=== PATIENT | female | born 1975 | race African-American/Black ===

== ENCOUNTER 2017-07-23 16:06 | Inpatient (IN) ==
[2017-07-23] MEDS ORDERED: guaiFENesin/DM ER 600-30 MG TABLET PO PRN (18:17)
[2017-07-23] MEDS ORDERED: ACETAMINOPHEN 325 MG TABLET PO PRN ×2 (18:17)
[2017-07-23] MEDS ORDERED: DOCUSATE SODIUM 100 MG CAPSULE PO PRN (18:17)
[2017-07-23] MEDS ORDERED: oxyCODONE/ACETAMINOPHEN 5-325 MG TABLET PO PRN ×2 (18:17)
[2017-07-23] MEDS ORDERED: ENOXAPARIN 30 MG/0.3 ML SYRINGE SUBCUT SCH (18:30)
[2017-07-23] MEDS ORDERED: fentaNYL 50 MCG/HR PATCH TRANSDERM SCH (18:30)
[2017-07-23] MEDS: SODIUM CHLORIDE 0.9% 1,000 ML IV SCH (19:15)
[2017-07-23] MEDS: ONDANSETRON 4 MG/2 ML VIAL IV PRN (19:17)
[2017-07-23] MEDS: MEPERIDINE 25 MG/1 ML VIAL IV PRN ×2 (19:17→21:17)
[2017-07-23] MEDS: metroNIDAZOLE INJ 500 MG in PREMIX 1 EACH IV SCH (19:21)
[2017-07-23 20:03] LABS: Basophils % 0.7 % (0.0-0.8); Eosinophils # 0.2 10*3/uL (0.0-0.87); Eosinophils % 2.5 % (0.00-10.9); Hemoglobin 12.1 GM/DL (12.0-16.0); Immature Granulocytes % 0.3 %; Immature Granulocytes Absolute 0.02 #; Lymphocytes # 1.9 10*3/uL (1.4-4.0); Lymphocytes % 32.1 % (21.3-54.2); Mean Corpuscular HGB Conc 32.7 GM/DL (32-36); Mean Corpuscular Hemoglobin 28 PG (27-34); Mean Corpuscular Volume 84.3 FL (87-102); Mean Platelet Volume 13.3 FL (9.6-12.0); Monocytes # 0.3 10*3/uL (0.11-0.8); Monocytes % 5.2 % (1.7-12.7); Neutrophils # 3.5 10*3/uL (1.4-7.4); Neutrophils % 59.2 % (38.7-73.9); Platelet Count 188 T/CUMM (130-400); Red Blood Count 4.39 MC/CUMM (3.8-5.5); Red Cell Distribution Width 13.6 % (9.3-17.3)
[2017-07-23 20:34] LABS: Alanine Aminotransferase 14 U/L (13-56); Albumin 3.2 G/DL (3.4-5.0); Alkaline Phosphatase 106 U/L (45-117); Aspartate Amino Transferase 9 U/L (0-37); Bilirubin,Total < 0.39 MG/DL (0.2-1.0); Blood Urea Nitrogen 16 MG/DL (7-18); Calcium 8.2 MG/DL (8.5-10.1); Glucose 104 MG/DL (74-106); Osmolality,Calculated 275.7 MOS/KG (273-304); Sodium 138 MMOL/L (136-145); Total Protein 6.9 G/DL (6.4-8.3)
[2017-07-23] MEDS: LEVOFLOXACIN INJ 500 MG in PREMIX 1 EACH IV SCH (21:16)
[2017-07-23] MEDS: ZALEPLON 5 MG CAPSULE PO SCH (21:17)
[2017-07-23] MEDS: PREGABALIN 50 MG CAPSULE PO SCH (21:17)
[2017-07-23] MEDS: FERROUS SULFATE 325 MG TABLET PO SCH (21:17)
[2017-07-23] MEDS: GABAPENTIN 600 MG TABLET PO SCH (21:17)
[2017-07-23] MEDS: PROMETHAZINE 25 MG TABLET PO PRN (21:24)
[2017-07-23] MEDS: MEPERIDINE 50 MG/1 ML VIAL IV PRN (21:24)
[2017-07-24] MEDS: MEPERIDINE 50 MG/1 ML VIAL IV PRN ×6 (01:52→21:27)
[2017-07-24] MEDS: SODIUM CHLORIDE 0.9% 1,000 ML IV SCH ×5 (04:35→18:43)
[2017-07-24] MEDS: metroNIDAZOLE INJ 500 MG in PREMIX 1 EACH IV SCH ×2 (05:33→17:34)
[2017-07-24] MEDS: ONDANSETRON 4 MG/2 ML VIAL IV PRN ×3 (05:38→17:30)
[2017-07-24 07:01] LABS: Basophils % 0.6 % (0.0-0.8); Eosinophils # 0.2 10*3/uL (0.0-0.87); Eosinophils % 2.3 % (0.00-10.9); Hematocrit 33.7 VOL% (35.7-47.0); Hemoglobin 11.1 GM/DL (12.0-16.0); Immature Granulocytes % 0.3 %; Immature Granulocytes Absolute 0.02 #; Lymphocytes # 2.2 10*3/uL (1.4-4.0); Lymphocytes % 32.6 % (21.3-54.2); Mean Corpuscular HGB Conc 32.9 GM/DL (32-36); Mean Corpuscular Hemoglobin 28 PG (27-34); Mean Corpuscular Volume 84.7 FL (87-102); Mean Platelet Volume 13.1 FL (9.6-12.0); Monocytes # 0.5 10*3/uL (0.11-0.8); Monocytes % 7.2 % (1.7-12.7); Neutrophils # 3.9 10*3/uL (1.4-7.4); Platelet Count 171 T/CUMM (130-400); Red Blood Count 3.98 MC/CUMM (3.8-5.5); Red Cell Distribution Width 13.7 % (9.3-17.3); White Blood Count 6.9 T/CUMM (4-12)
[2017-07-24 07:41] LABS: Calcium 7.8 MG/DL (8.5-10.1); Magnesium 2.1 MG/DL (1.8-2.4); Osmolality,Calculated 277.7 MOS/KG (273-304); Potassium 3.9 MMOL/L (3.5-5.1)
[2017-07-24 07:48] LABS: Troponin I Only < 0.015 NG/ML (0.00-0.045)
[2017-07-24] MEDS: FERROUS SULFATE 325 MG TABLET PO SCH ×2 (08:27→21:26)
[2017-07-24] MEDS: LISINOPRIL 20 MG TABLET PO SCH (08:27)
[2017-07-24] MEDS: diphenhydrAMINE CAP 25 MG CAPSULE PO PRN ×2 (08:27→17:30)
[2017-07-24] MEDS: glipiZIDE 5 MG TABLET PO SCH (08:28)
[2017-07-24] MEDS: PROMETHAZINE 25 MG TABLET PO PRN ×3 (08:28→21:26)
[2017-07-24] MEDS: SERTRALINE 25 MG TABLET PO SCH (08:28)
[2017-07-24] MEDS: PANTOPRAZOLE 40 MG TABLET PO SCH (08:28)
[2017-07-24] MEDS: PREGABALIN 50 MG CAPSULE PO SCH ×3 (08:28→21:26)
[2017-07-24] MEDS: GABAPENTIN 600 MG TABLET PO SCH ×2 (08:28→21:27)
[2017-07-24 09:03] LABS: PT Patient Result 10.7 SECS
[2017-07-24] MEDS: oxyCODONE/ACETAMINOPHEN 5-325 MG TABLET PO PRN (14:26)
[2017-07-24] MEDS: WARFARIN 1 MG TABLET PO SCH (17:30)
[2017-07-24] MEDS: ZALEPLON 5 MG CAPSULE PO SCH (21:26)
[2017-07-24] MEDS: ENOXAPARIN 40 MG/0.4 ML SYRINGE SUBCUT SCH (21:27)
[2017-07-24] MEDS: INSULIN REGULAR 100 UNIT/ML SUBCUT SCH (21:31)
[2017-07-25] MEDS: ONDANSETRON 4 MG/2 ML VIAL IV PRN ×6 (00:15→22:04)
[2017-07-25] MEDS: diphenhydrAMINE CAP 25 MG CAPSULE PO PRN ×4 (00:15→18:35)
[2017-07-25] MEDS: SODIUM CHLORIDE 0.9% 1,000 ML IV SCH ×4 (00:15→18:44)
[2017-07-25] MEDS: MEPERIDINE 50 MG/1 ML VIAL IV PRN ×7 (00:18→22:03)
[2017-07-25] MEDS: oxyCODONE/ACETAMINOPHEN 5-325 MG TABLET PO PRN (03:08)
[2017-07-25] MEDS: metroNIDAZOLE INJ 500 MG in PREMIX 1 EACH IV SCH ×2 (06:03→18:43)
[2017-07-25 07:05] LABS: Basophils % 0.8 % (0.0-0.8); Eosinophils # 0.2 10*3/uL (0.0-0.87); Eosinophils % 3.8 % (0.00-10.9); Hematocrit 33.7 VOL% (35.7-47.0); Immature Granulocytes % 0.2 %; Immature Granulocytes Absolute 0.01 #; Lymphocytes # 2.2 10*3/uL (1.4-4.0); Lymphocytes % 41.3 % (21.3-54.2); Mean Corpuscular HGB Conc 32.6 GM/DL (32-36); Mean Corpuscular Hemoglobin 28 PG (27-34); Mean Corpuscular Volume 86.2 FL (87-102); Mean Platelet Volume 12.8 FL (9.6-12.0); Monocytes # 0.4 10*3/uL (0.11-0.8); Monocytes % 6.7 % (1.7-12.7); Neutrophils # 2.5 10*3/uL (1.4-7.4); Neutrophils % 47.2 % (38.7-73.9); Platelet Count 177 T/CUMM (130-400); Red Blood Count 3.91 MC/CUMM (3.8-5.5); Red Cell Distribution Width 13.8 % (9.3-17.3); White Blood Count 5.2 T/CUMM (4-12)
[2017-07-25 07:38] LABS: Calcium 7.5 MG/DL (8.5-10.1); Osmolality,Calculated 276.7 MOS/KG (273-304); Potassium 4.1 MMOL/L (3.5-5.1)
[2017-07-25] MEDS: PROMETHAZINE 25 MG TABLET PO PRN (08:58)
[2017-07-25] MEDS: FERROUS SULFATE 325 MG TABLET PO SCH ×2 (08:58→21:53)
[2017-07-25] MEDS: PREGABALIN 50 MG CAPSULE PO SCH ×3 (08:58→21:53)
[2017-07-25] MEDS: PANTOPRAZOLE 40 MG TABLET PO SCH (08:58)
[2017-07-25] MEDS: LISINOPRIL 20 MG TABLET PO SCH (08:58)
[2017-07-25] MEDS: glipiZIDE 5 MG TABLET PO SCH (08:58)
[2017-07-25] MEDS: GABAPENTIN 600 MG TABLET PO SCH ×2 (08:58→21:53)
[2017-07-25] MEDS: SERTRALINE 25 MG TABLET PO SCH (08:58)
[2017-07-25] MEDS: INSULIN REGULAR 100 UNIT/ML SUBCUT SCH ×4 (08:59→21:54)
[2017-07-25] MEDS ORDERED: HYDROmorphone 2 MG/1 ML VIAL IV ONE (14:48)
[2017-07-25 16:58] LABS: PT Patient Result 10.1 SECS
[2017-07-25] MEDS: WARFARIN 1 MG TABLET PO SCH (18:33)
[2017-07-25] MEDS: ZALEPLON 5 MG CAPSULE PO SCH (21:53)
[2017-07-25] MEDS: LEVOFLOXACIN INJ 500 MG in PREMIX 1 EACH IV SCH (21:54)
[2017-07-25] MEDS: ENOXAPARIN 40 MG/0.4 ML SYRINGE SUBCUT SCH (21:54)
[2017-07-26] MEDS: MEPERIDINE 50 MG/1 ML VIAL IV PRN ×5 (02:27→23:29)
[2017-07-26] MEDS: SODIUM CHLORIDE 0.9% 1,000 ML IV SCH ×6 (02:45→20:57)
[2017-07-26] MEDS: oxyCODONE/ACETAMINOPHEN 5-325 MG TABLET PO PRN ×3 (04:03→17:16)
[2017-07-26] MEDS: ONDANSETRON 4 MG/2 ML VIAL IV PRN ×4 (05:51→23:29)
[2017-07-26] MEDS: metroNIDAZOLE INJ 500 MG in PREMIX 1 EACH IV SCH ×2 (05:53→17:30)
[2017-07-26 07:23] LABS: Basophils % 0.6 % (0.0-0.8); Eosinophils # 0.2 10*3/uL (0.0-0.87); Eosinophils % 3.1 % (0.00-10.9); Hematocrit 31.6 VOL% (35.7-47.0); Hemoglobin 10.1 GM/DL (12.0-16.0); Immature Granulocytes % 0.2 %; Immature Granulocytes Absolute 0.01 #; Lymphocytes % 37.4 % (21.3-54.2); Mean Corpuscular Hemoglobin 28 PG (27-34); Mean Corpuscular Volume 86.3 FL (87-102); Monocytes # 0.3 10*3/uL (0.11-0.8); Monocytes % 6.2 % (1.7-12.7); Neutrophils # 2.9 10*3/uL (1.4-7.4); Neutrophils % 52.5 % (38.7-73.9); Platelet Count 163 T/CUMM (130-400); Red Blood Count 3.66 MC/CUMM (3.8-5.5); Red Cell Distribution Width 13.8 % (9.3-17.3); White Blood Count 5.5 T/CUMM (4-12)
[2017-07-26 08:07] LABS: PT Patient Result 10.3 SECS
[2017-07-26 08:11] LABS: Calcium 7.3 MG/DL (8.5-10.1); Magnesium 1.9 MG/DL (1.8-2.4); Osmolality,Calculated 280.4 MOS/KG (273-304); Potassium 4.3 MMOL/L (3.5-5.1)
[2017-07-26] MEDS: INSULIN REGULAR 100 UNIT/ML SUBCUT SCH ×4 (08:18→21:06)
[2017-07-26] MEDS: GABAPENTIN 600 MG TABLET PO SCH ×2 (08:19→21:00)
[2017-07-26] MEDS: MEPERIDINE 25 MG/1 ML VIAL IV PRN (08:19)
[2017-07-26] MEDS: FERROUS SULFATE 325 MG TABLET PO SCH ×2 (08:19→21:00)
[2017-07-26] MEDS: PREGABALIN 50 MG CAPSULE PO SCH ×3 (08:19→21:00)
[2017-07-26] MEDS: LISINOPRIL 20 MG TABLET PO SCH (08:19)
[2017-07-26] MEDS: PROMETHAZINE 25 MG TABLET PO PRN ×2 (08:19→14:26)
[2017-07-26] MEDS: PANTOPRAZOLE 40 MG TABLET PO SCH (08:19)
[2017-07-26] MEDS: SERTRALINE 25 MG TABLET PO SCH (08:20)
[2017-07-26] MEDS: glipiZIDE 5 MG TABLET PO SCH (08:20)
[2017-07-26] MEDS: fentaNYL 25 MCG/HR PATCH TRANSDERM SCH (13:25)
[2017-07-26] MEDS: WARFARIN 1 MG TABLET PO SCH (17:16)
[2017-07-26] MEDS: ZALEPLON 5 MG CAPSULE PO SCH (20:59)
[2017-07-26] MEDS: ENOXAPARIN 40 MG/0.4 ML SYRINGE SUBCUT SCH (20:59)
[2017-07-27] MEDS: MEPERIDINE 50 MG/1 ML VIAL IV PRN ×5 (04:25→21:23)
[2017-07-27] MEDS: ONDANSETRON 4 MG/2 ML VIAL IV PRN ×5 (04:26→21:20)
[2017-07-27] MEDS: diphenhydrAMINE CAP 25 MG CAPSULE PO PRN ×3 (04:29→21:19)
[2017-07-27] MEDS: SODIUM CHLORIDE 0.9% 1,000 ML IV SCH ×2 (04:56→23:36)
[2017-07-27] MEDS: metroNIDAZOLE INJ 500 MG in PREMIX 1 EACH IV SCH ×2 (05:40→17:48)
[2017-07-27 07:29] LABS: Basophils % 0.5 % (0.0-0.8); Eosinophils # 0.2 10*3/uL (0.0-0.87); Eosinophils % 4.3 % (0.00-10.9); Hematocrit 31.4 VOL% (35.7-47.0); Lymphocytes % 36.5 % (21.3-54.2); Mean Corpuscular HGB Conc 31.8 GM/DL (32-36); Mean Corpuscular Hemoglobin 27 PG (27-34); Monocytes # 0.4 10*3/uL (0.11-0.8); Monocytes % 6.6 % (1.7-12.7); Neutrophils # 2.9 10*3/uL (1.4-7.4); Neutrophils % 52.1 % (38.7-73.9); Platelet Count 179 T/CUMM (130-400); Red Blood Count 3.65 MC/CUMM (3.8-5.5); Red Cell Distribution Width 13.9 % (9.3-17.3); White Blood Count 5.6 T/CUMM (4-12)
[2017-07-27 07:42] LABS: PT Patient Result 10.3 SECS
[2017-07-27 07:56] LABS: Calcium 7.7 MG/DL (8.5-10.1); Magnesium 1.7 MG/DL (1.8-2.4); Osmolality,Calculated 282.3 MOS/KG (273-304); Potassium 4.4 MMOL/L (3.5-5.1)
[2017-07-27] MEDS: FERROUS SULFATE 325 MG TABLET PO SCH ×2 (08:04→21:19)
[2017-07-27] MEDS: LISINOPRIL 20 MG TABLET PO SCH (08:04)
[2017-07-27] MEDS: glipiZIDE 5 MG TABLET PO SCH (08:04)
[2017-07-27] MEDS: INSULIN REGULAR 100 UNIT/ML SUBCUT SCH ×4 (08:05→21:20)
[2017-07-27] MEDS: PANTOPRAZOLE 40 MG TABLET PO SCH (08:05)
[2017-07-27] MEDS: SERTRALINE 25 MG TABLET PO SCH (08:05)
[2017-07-27] MEDS: PREGABALIN 50 MG CAPSULE PO SCH ×3 (08:05→21:19)
[2017-07-27] MEDS: GABAPENTIN 600 MG TABLET PO SCH ×2 (08:05→21:19)
[2017-07-27] MEDS ORDERED: MAGNESIUM SULF RIDER 2 GM in PREMIX 1 EACH IV ONE (08:56)
[2017-07-27] MEDS: oxyCODONE/ACETAMINOPHEN 5-325 MG TABLET PO PRN ×2 (10:00→17:48)
[2017-07-27] MEDS: WARFARIN 1 MG TABLET PO SCH (17:48)
[2017-07-27] MEDS: PROMETHAZINE 25 MG TABLET PO PRN (17:49)
[2017-07-27] MEDS: ENOXAPARIN 40 MG/0.4 ML SYRINGE SUBCUT SCH (21:19)
[2017-07-27] MEDS: ZALEPLON 5 MG CAPSULE PO SCH (21:19)
[2017-07-27] MEDS: LEVOFLOXACIN INJ 500 MG in PREMIX 1 EACH IV SCH (21:20)
[2017-07-28] MEDS: ONDANSETRON 4 MG/2 ML VIAL IV PRN ×5 (01:13→22:22)
[2017-07-28] MEDS: MEPERIDINE 50 MG/1 ML VIAL IV PRN ×5 (01:15→22:20)
[2017-07-28] MEDS: SODIUM CHLORIDE 0.9% 1,000 ML IV SCH ×4 (02:34→21:10)
[2017-07-28] MEDS: metroNIDAZOLE INJ 500 MG in PREMIX 1 EACH IV SCH ×2 (05:32→18:08)
[2017-07-28 06:16] LABS: Calcium 7.6 MG/DL (8.5-10.1); Osmolality,Calculated 283.4 MOS/KG (273-304); Potassium 4.2 MMOL/L (3.5-5.1)
[2017-07-28 06:19] LABS: PT Patient Result 10.3 SECS
[2017-07-28] MEDS: oxyCODONE/ACETAMINOPHEN 5-325 MG TABLET PO PRN (06:45)
[2017-07-28] MEDS: INSULIN REGULAR 100 UNIT/ML SUBCUT SCH ×4 (07:53→21:11)
[2017-07-28] MEDS: SERTRALINE 25 MG TABLET PO SCH (08:41)
[2017-07-28] MEDS: PREGABALIN 50 MG CAPSULE PO SCH ×3 (08:41→21:11)
[2017-07-28] MEDS: PANTOPRAZOLE 40 MG TABLET PO SCH (08:42)
[2017-07-28] MEDS: FERROUS SULFATE 325 MG TABLET PO SCH ×2 (08:42→21:11)
[2017-07-28] MEDS: glipiZIDE 5 MG TABLET PO SCH (08:42)
[2017-07-28] MEDS: GABAPENTIN 600 MG TABLET PO SCH ×2 (08:42→21:11)
[2017-07-28] MEDS: LISINOPRIL 20 MG TABLET PO SCH (08:43)
[2017-07-28] MEDS ORDERED: HYDROmorphone 2 MG/1 ML VIAL IV ONE (12:00)
[2017-07-28] MEDS: diphenhydrAMINE CAP 25 MG CAPSULE PO PRN ×2 (13:31→22:20)
[2017-07-28] MEDS: WARFARIN 1 MG TABLET PO SCH (18:09)
[2017-07-28] MEDS: ZALEPLON 5 MG CAPSULE PO SCH (21:11)
[2017-07-28] MEDS: ENOXAPARIN 40 MG/0.4 ML SYRINGE SUBCUT SCH (21:11)
[2017-07-29] MEDS: MEPERIDINE 50 MG/1 ML VIAL IV PRN ×3 (02:18→10:51)
[2017-07-29] MEDS: ONDANSETRON 4 MG/2 ML VIAL IV PRN ×4 (02:19→23:27)
[2017-07-29 06:30] LABS: PT Patient Result 10.2 SECS
[2017-07-29] MEDS: metroNIDAZOLE INJ 500 MG in PREMIX 1 EACH IV SCH ×2 (06:39→17:51)
[2017-07-29] MEDS: SODIUM CHLORIDE 0.9% 1,000 ML IV SCH ×3 (06:39→21:08)
[2017-07-29 06:51] LABS: Magnesium 1.8 MG/DL (1.8-2.4); Osmolality,Calculated 281.4 MOS/KG (273-304); Potassium 4.3 MMOL/L (3.5-5.1)
[2017-07-29] MEDS: INSULIN REGULAR 100 UNIT/ML SUBCUT SCH ×4 (07:49→20:49)
[2017-07-29] MEDS: LISINOPRIL 20 MG TABLET PO SCH (09:08)
[2017-07-29] MEDS: fentaNYL 25 MCG/HR PATCH TRANSDERM SCH (09:08)
[2017-07-29] MEDS: PREGABALIN 50 MG CAPSULE PO SCH ×3 (09:09→21:07)
[2017-07-29] MEDS: GABAPENTIN 600 MG TABLET PO SCH ×2 (09:09→21:07)
[2017-07-29] MEDS: FERROUS SULFATE 325 MG TABLET PO SCH ×2 (09:09→21:07)
[2017-07-29] MEDS: SERTRALINE 25 MG TABLET PO SCH (09:09)
[2017-07-29] MEDS: PANTOPRAZOLE 40 MG TABLET PO SCH (09:09)
[2017-07-29] MEDS: glipiZIDE 5 MG TABLET PO SCH (09:09)
[2017-07-29] MEDS: oxyCODONE/ACETAMINOPHEN 5-325 MG TABLET PO PRN (12:20)
[2017-07-29] MEDS: MEPERIDINE 25 MG/1 ML VIAL IV PRN ×3 (14:49→23:31)
[2017-07-29] MEDS: PROMETHAZINE 25 MG TABLET PO PRN (14:52)
[2017-07-29] MEDS: WARFARIN 1 MG TABLET PO SCH (17:51)
[2017-07-29 18:33] LABS: Apearance,Urine CLEAR (Clear); Bilirubin,Urine Negative (Negative); Blood, Urine Small mg/dL (Negative); Glucose,Urine (UA) Negative (Negative); Ketones,Urine Negative (Negative); Mucus,Urine Occasional /LPF (Occasional); Nitrite,Urine Negative (Negative); Protein,Urine Negative; RBC,Urine 16 /HPF (0-4); Squamous Epithelial Cell,Urine Occasional /HPF (0-10); Urine Color Straw (Yellow); Urine Specific Gravity 1.006 (1.001-1.035); Urine Urobilinogen < 2.0 EU/DL (0.2-1.0); WBC,Urine 12 /HPF (0-6)
[2017-07-29] MEDS: ENOXAPARIN 40 MG/0.4 ML SYRINGE SUBCUT SCH (21:07)
[2017-07-29] MEDS: ZALEPLON 5 MG CAPSULE PO SCH (21:07)
[2017-07-29] MEDS: LEVOFLOXACIN INJ 500 MG in PREMIX 1 EACH IV SCH (21:07)
[2017-07-29] MEDS: diphenhydrAMINE CAP 25 MG CAPSULE PO PRN (23:27)
[2017-07-30] MEDS: SODIUM CHLORIDE 0.9% 1,000 ML IV SCH ×4 (02:45→20:58)
[2017-07-30] MEDS: ONDANSETRON 4 MG/2 ML VIAL IV PRN ×4 (04:33→21:04)
[2017-07-30] MEDS: MEPERIDINE 25 MG/1 ML VIAL IV PRN ×5 (04:35→21:04)
[2017-07-30 06:25] LABS: PT Patient Result 10.2 SECS
[2017-07-30] MEDS: metroNIDAZOLE INJ 500 MG in PREMIX 1 EACH IV SCH ×2 (06:38→17:30)
[2017-07-30] MEDS: LISINOPRIL 20 MG TABLET PO SCH (08:15)
[2017-07-30] MEDS: INSULIN REGULAR 100 UNIT/ML SUBCUT SCH ×4 (08:15→20:58)
[2017-07-30] MEDS: PREGABALIN 50 MG CAPSULE PO SCH (08:16)
[2017-07-30] MEDS: SERTRALINE 25 MG TABLET PO SCH (08:16)
[2017-07-30] MEDS: PANTOPRAZOLE 40 MG TABLET PO SCH (08:16)
[2017-07-30] MEDS: glipiZIDE 5 MG TABLET PO SCH (08:16)
[2017-07-30] MEDS: FERROUS SULFATE 325 MG TABLET PO SCH ×2 (08:16→21:54)
[2017-07-30] MEDS: GABAPENTIN 600 MG TABLET PO SCH ×3 (08:16→20:59)
[2017-07-30] MEDS: PROMETHAZINE 25 MG TABLET PO PRN (11:54)
[2017-07-30] MEDS: WARFARIN 1 MG TABLET PO SCH (17:24)
[2017-07-30] MEDS: ZALEPLON 5 MG CAPSULE PO SCH (20:59)
[2017-07-30] MEDS: ENOXAPARIN 40 MG/0.4 ML SYRINGE SUBCUT SCH (20:59)
[2017-07-31] MEDS: ONDANSETRON 4 MG/2 ML VIAL IV PRN ×5 (01:13→20:57)
[2017-07-31] MEDS: MEPERIDINE 25 MG/1 ML VIAL IV PRN ×4 (01:13→20:57)
[2017-07-31] MEDS: SODIUM CHLORIDE 0.9% 1,000 ML IV SCH ×3 (04:55→22:55)
[2017-07-31] MEDS: metroNIDAZOLE INJ 500 MG in PREMIX 1 EACH IV SCH ×2 (05:40→17:39)
[2017-07-31] MEDS: INSULIN REGULAR 100 UNIT/ML SUBCUT SCH ×4 (07:28→20:58)
[2017-07-31] MEDS: LISINOPRIL 20 MG TABLET PO SCH (08:50)
[2017-07-31] MEDS: FERROUS SULFATE 325 MG TABLET PO SCH ×2 (08:50→20:59)
[2017-07-31] MEDS: glipiZIDE 5 MG TABLET PO SCH (08:51)
[2017-07-31] MEDS: PANTOPRAZOLE 40 MG TABLET PO SCH (08:51)
[2017-07-31] MEDS: GABAPENTIN 600 MG TABLET PO SCH ×3 (08:51→20:59)
[2017-07-31] MEDS: SERTRALINE 25 MG TABLET PO SCH (08:51)
[2017-07-31] MEDS ORDERED: HYDROmorphone 2 MG/1 ML VIAL IV ONE (09:52)
[2017-07-31] MEDS: WARFARIN 1 MG TABLET PO SCH (17:39)
[2017-07-31] MEDS: ENOXAPARIN 40 MG/0.4 ML SYRINGE SUBCUT SCH (20:58)
[2017-07-31] MEDS: ZALEPLON 5 MG CAPSULE PO SCH (20:59)
[2017-07-31] MEDS: LEVOFLOXACIN INJ 500 MG in PREMIX 1 EACH IV SCH (22:52)
[2017-08-01] MEDS: MEPERIDINE 25 MG/1 ML VIAL IV PRN (05:02)
[2017-08-01] MEDS: ONDANSETRON 4 MG/2 ML VIAL IV PRN (05:03)
[2017-08-01] MEDS: metroNIDAZOLE INJ 500 MG in PREMIX 1 EACH IV SCH (06:04)
[2017-08-01] MEDS: INSULIN REGULAR 100 UNIT/ML SUBCUT SCH ×2 (08:44→12:05)
[2017-08-01] MEDS: oxyCODONE/ACETAMINOPHEN 5-325 MG TABLET PO PRN (08:45)
[2017-08-01] MEDS: GABAPENTIN 600 MG TABLET PO SCH (08:46)
[2017-08-01] MEDS: SERTRALINE 25 MG TABLET PO SCH (08:46)
[2017-08-01] MEDS: LISINOPRIL 20 MG TABLET PO SCH (08:46)
[2017-08-01] MEDS: FERROUS SULFATE 325 MG TABLET PO SCH (08:46)
[2017-08-01] MEDS: glipiZIDE 5 MG TABLET PO SCH (08:46)
[2017-08-01] MEDS: PANTOPRAZOLE 40 MG TABLET PO SCH (08:46)
[2017-08-01] MEDS: fentaNYL 25 MCG/HR PATCH TRANSDERM SCH (08:47)
[2017-08-01 09:15] VITALS: BP 150/83
[2017-08-01] MEDS: SODIUM CHLORIDE 0.9% 1,000 ML IV SCH (12:05)
== END 2017-08-01 12:03 | disposition home or self-care (01) | DRG 699 ==
LOC: N.5E 16:32 → SUATTDRO 16:32
PROVIDERS: ATTEND Internal Medicine

== ENCOUNTER 2018-04-30 07:28 | Inpatient (IN) ==
[2018-04-30] MEDS ORDERED: ONDANSETRON 4 MG/2 ML VIAL IV STA (07:45)
[2018-04-30] MEDS ORDERED: METOPROLOL TARTRATE 5 MG/5 ML VIAL IV STA (07:45)
[2018-04-30] MEDS ORDERED: fentaNYL 100 MCG/2 ML VIAL IV STA (07:48)
[2018-04-30 08:35] LABS: Basophils % 0.2 % (0.0-0.8); Eosinophils # 0.1 10*3/uL (0.0-0.87); Eosinophils % 1.1 % (0.00-10.9); Hematocrit 33.7 VOL% (35.7-47.0); Hemoglobin 11.1 GM/DL (12.0-16.0); Immature Granulocytes % 0.2 %; Immature Granulocytes Absolute 0.02 #; Lymphocytes # 1.3 10*3/uL (1.4-4.0); Lymphocytes % 15.5 % (21.3-54.2); Mean Corpuscular HGB Conc 32.9 GM/DL (32-36); Mean Corpuscular Hemoglobin 28 PG (27-34); Mean Platelet Volume 12.3 FL (9.6-12.0); Monocytes # 0.5 10*3/uL (0.11-0.8); Monocytes % 5.4 % (1.7-12.7); Neutrophils # 6.5 10*3/uL (1.4-7.4); Neutrophils % 77.6 % (38.7-73.9); Platelet Count 214 T/CUMM (130-400); Red Blood Count 4.01 MC/CUMM (3.8-5.5); Red Cell Distribution Width 13.9 % (9.3-17.3); White Blood Count 8.4 T/CUMM (4-12)
[2018-04-30 08:56] LABS: Alanine Aminotransferase 11 U/L (13-56); Albumin 2.9 G/DL (3.4-5.0); Alkaline Phosphatase 104 U/L (45-117); Aspartate Amino Transferase 6 U/L (0-37); Bilirubin,Total < 0.39 MG/DL (0.2-1.0); Blood Urea Nitrogen 16 MG/DL (7-18); Glucose 161 MG/DL (74-106); Osmolality,Calculated 278.7 MOS/KG (273-304); Potassium 3.8 MMOL/L (3.5-5.1); Sodium 138 MMOL/L (136-145); Total Protein 7.5 G/DL (6.4-8.3)
[2018-04-30] MEDS ORDERED: GLUCAGON 1 MG VIAL IM PRN (09:11)
[2018-04-30] MEDS ORDERED: DEXTROSE 50% 25 GM/50 ML VIAL IV PRN (09:11)
[2018-04-30] MEDS ORDERED: oxyCODONE/ACETAMINOPHEN 5-325 MG TABLET PO PRN (09:15)
[2018-04-30] MEDS: SODIUM CHLORIDE 0.9% 1,000 ML IV SCH ×2 (09:35→17:39)
[2018-04-30] MEDS: INSULIN REGULAR 100 UNIT/ML SUBCUT SCH ×3 (10:08→20:47)
[2018-04-30] MEDS: PROMETHAZINE 25 MG TABLET PO PRN ×2 (10:30→20:45)
[2018-04-30] MEDS: ONDANSETRON ODT 4 MG TABLET PO PRN (13:57)
[2018-04-30] MEDS: PREGABALIN 50 MG CAPSULE PO SCH ×2 (15:49→20:45)
[2018-04-30] MEDS: oxyCODONE/ACETAMINOPHEN 5-325 MG TABLET PO PRN ×2 (15:50→21:56)
[2018-04-30] MEDS: FERROUS SULFATE 325 MG TABLET PO SCH (20:45)
[2018-04-30] MEDS: ZALEPLON 5 MG CAPSULE PO SCH (20:45)
[2018-05-01] MEDS ORDERED: MEPERIDINE 25 MG/1 ML VIAL IV ONE (01:23)
[2018-05-01] MEDS: SODIUM CHLORIDE 0.9% 1,000 ML IV SCH ×3 (01:44→16:40)
[2018-05-01 05:53] LABS: Basophils % 0.3 % (0.0-0.8); Eosinophils # 0.1 10*3/uL (0.0-0.87); Eosinophils % 1.9 % (0.00-10.9); Hematocrit 27.4 VOL% (35.7-47.0); Immature Granulocytes % 0.2 %; Immature Granulocytes Absolute 0.01 #; Lymphocytes # 1.9 10*3/uL (1.4-4.0); Mean Corpuscular HGB Conc 32.8 GM/DL (32-36); Mean Corpuscular Hemoglobin 28 PG (27-34); Mean Corpuscular Volume 83.8 FL (87-102); Mean Platelet Volume 12.7 FL (9.6-12.0); Monocytes # 0.5 10*3/uL (0.11-0.8); Neutrophils # 3.9 10*3/uL (1.4-7.4); Neutrophils % 60.6 % (38.7-73.9); Red Blood Count 3.27 MC/CUMM (3.8-5.5); Red Cell Distribution Width 13.9 % (9.3-17.3); White Blood Count 6.4 T/CUMM (4-12)
[2018-05-01 05:56] LABS: Platelet Count 171 T/CUMM (130-400)
[2018-05-01 06:15] LABS: Calcium 7.1 MG/DL (8.5-10.1); Osmolality,Calculated 281.5 MOS/KG (273-304)
[2018-05-01] MEDS: PREGABALIN 50 MG CAPSULE PO SCH ×3 (08:43→20:54)
[2018-05-01] MEDS: SERTRALINE 25 MG TABLET PO SCH (08:43)
[2018-05-01] MEDS: PANTOPRAZOLE 40 MG TABLET PO SCH (08:43)
[2018-05-01] MEDS: FERROUS SULFATE 325 MG TABLET PO SCH ×2 (08:43→20:54)
[2018-05-01] MEDS: LISINOPRIL 20 MG TABLET PO SCH (08:43)
[2018-05-01] MEDS: glipiZIDE 5 MG TABLET PO SCH (08:43)
[2018-05-01] MEDS: INSULIN REGULAR 100 UNIT/ML SUBCUT SCH ×4 (08:44→20:55)
[2018-05-01] MEDS ORDERED: NON-FORMULARY MEDICATION (Esomeprazole Magnesium [Nexium] 40 MG) PO SCH (09:00)
[2018-05-01] MEDS: MORPHINE IR 15 MG TABLET PO PRN ×2 (09:22→13:03)
[2018-05-01 14:04] LABS: Basophils % 0.2 % (0.0-0.8); Eosinophils # 0.1 10*3/uL (0.0-0.87); Eosinophils % 1.7 % (0.00-10.9); Hematocrit 28.1 VOL% (35.7-47.0); Hemoglobin 9.2 GM/DL (12.0-16.0); Immature Granulocytes % 0.1 %; Immature Granulocytes Absolute 0.01 #; Lymphocytes # 2.3 10*3/uL (1.4-4.0); Lymphocytes % 28.4 % (21.3-54.2); Mean Corpuscular HGB Conc 32.7 GM/DL (32-36); Mean Corpuscular Hemoglobin 27 PG (27-34); Mean Corpuscular Volume 83.1 FL (87-102); Mean Platelet Volume 12.8 FL (9.6-12.0); Monocytes # 0.6 10*3/uL (0.11-0.8); Monocytes % 7.6 % (1.7-12.7); Neutrophils # 5.1 10*3/uL (1.4-7.4); Platelet Count 173 T/CUMM (130-400); Red Blood Count 3.38 MC/CUMM (3.8-5.5); White Blood Count 8.2 T/CUMM (4-12)
[2018-05-01] MEDS: MORPHINE 4 MG/1 ML VIAL IV PRN ×2 (17:34→21:09)
[2018-05-01] MEDS: ONDANSETRON ODT 4 MG TABLET PO PRN (17:34)
[2018-05-01] MEDS: ZALEPLON 5 MG CAPSULE PO SCH (20:54)
[2018-05-02] MEDS: ONDANSETRON ODT 4 MG TABLET PO PRN ×2 (00:03→13:19)
[2018-05-02] MEDS: MORPHINE 4 MG/1 ML VIAL IV PRN ×2 (00:03→03:00)
[2018-05-02] MEDS: SODIUM CHLORIDE 0.9% 1,000 ML IV SCH ×3 (00:06→20:33)
[2018-05-02] MEDS ORDERED: PROMETHAZINE INJ 25 MG in SODIUM CHLORIDE 0.9% 50 ML IV ONE (02:10)
[2018-05-02 05:41] LABS: Basophils % 0.2 % (0.0-0.8); Eosinophils % 0.1 % (0.00-10.9); Hemoglobin 9.1 GM/DL (12.0-16.0); Immature Granulocytes % 0.4 %; Immature Granulocytes Absolute 0.05 #; Lymphocytes # 0.6 10*3/uL (1.4-4.0); Lymphocytes % 4.8 % (21.3-54.2); Mean Corpuscular HGB Conc 32.5 GM/DL (32-36); Mean Corpuscular Hemoglobin 28 PG (27-34); Mean Corpuscular Volume 84.8 FL (87-102); Mean Platelet Volume 12.5 FL (9.6-12.0); Monocytes # 0.5 10*3/uL (0.11-0.8); Neutrophils # 10.5 10*3/uL (1.4-7.4); Neutrophils % 90.5 % (38.7-73.9); Platelet Count 186 T/CUMM (130-400); Red Cell Distribution Width 13.8 % (9.3-17.3); White Blood Count 11.6 T/CUMM (4-12)
[2018-05-02 05:53] LABS: Calcium 7.7 MG/DL (8.5-10.1); Osmolality,Calculated 284.5 MOS/KG (273-304); Potassium 4.3 MMOL/L (3.5-5.1)
[2018-05-02 06:00] LABS: Hypochromasia 1+; Lymphocytes 5 % (20-55); Microcytosis 1+; Platelet Estimate Adequate; Segmented Neutrophils 90 % (50-85); Total Cells Counted 100
[2018-05-02] MEDS: FERROUS SULFATE 325 MG TABLET PO SCH ×2 (08:26→20:31)
[2018-05-02] MEDS: glipiZIDE 5 MG TABLET PO SCH (08:26)
[2018-05-02] MEDS: PREGABALIN 50 MG CAPSULE PO SCH ×3 (08:26→20:31)
[2018-05-02] MEDS: PANTOPRAZOLE 40 MG TABLET PO SCH (08:27)
[2018-05-02] MEDS: PROMETHAZINE 25 MG TABLET PO PRN ×2 (08:27→17:55)
[2018-05-02] MEDS: SERTRALINE 25 MG TABLET PO SCH (08:27)
[2018-05-02] MEDS: LISINOPRIL 20 MG TABLET PO SCH (08:27)
[2018-05-02] MEDS: INSULIN REGULAR 100 UNIT/ML SUBCUT SCH ×4 (08:49→20:56)
[2018-05-02] MEDS: HYDROmorphone 2 MG/1 ML VIAL IV PRN ×4 (08:50→22:41)
[2018-05-02] MEDS: ZALEPLON 5 MG CAPSULE PO SCH (20:31)
[2018-05-03] MEDS: HYDROmorphone 2 MG/1 ML VIAL IV PRN ×5 (02:36→21:42)
[2018-05-03] MEDS: PROMETHAZINE 25 MG TABLET PO PRN ×3 (02:56→21:42)
[2018-05-03] MEDS: SODIUM CHLORIDE 0.9% 1,000 ML IV SCH ×3 (04:31→20:41)
[2018-05-03] MEDS: INSULIN REGULAR 100 UNIT/ML SUBCUT SCH ×4 (08:16→21:45)
[2018-05-03] MEDS: FERROUS SULFATE 325 MG TABLET PO SCH ×2 (08:39→20:41)
[2018-05-03] MEDS: LISINOPRIL 20 MG TABLET PO SCH (08:39)
[2018-05-03] MEDS: glipiZIDE 5 MG TABLET PO SCH (08:39)
[2018-05-03] MEDS: PANTOPRAZOLE 40 MG TABLET PO SCH (08:40)
[2018-05-03] MEDS: PREGABALIN 50 MG CAPSULE PO SCH ×3 (08:40→20:41)
[2018-05-03] MEDS: SERTRALINE 25 MG TABLET PO SCH (08:40)
[2018-05-03] MEDS: fentaNYL 25 MCG/HR PATCH TRANSDERM SCH (09:14)
[2018-05-03 17:46] LABS: Apearance,Urine CLOUDY (Clear); Bilirubin,Urine Negative (Negative); Blood, Urine Moderate mg/dL (Negative); Glucose,Urine (UA) Negative (Negative); Ketones,Urine Negative (Negative); Nitrite,Urine Negative (Negative); Protein,Urine 100 MG/DL; RBC,Urine 3905 /HPF (0-4); Urine Color Red (Yellow); Urine Specific Gravity 1.005 (1.001-1.035); Urine Urobilinogen < 2.0 EU/DL (0.2-1.0); WBC,Urine 100 /HPF (0-6)
[2018-05-03] MEDS: ZALEPLON 5 MG CAPSULE PO SCH (20:41)
[2018-05-04] MEDS: HYDROmorphone 2 MG/1 ML VIAL IV PRN ×6 (01:28→21:58)
[2018-05-04] MEDS: SODIUM CHLORIDE 0.9% 1,000 ML IV SCH ×2 (04:50→20:52)
[2018-05-04 05:18] LABS: Basophils % 0.3 % (0.0-0.8); Eosinophils % 0.2 % (0.00-10.9); Hematocrit 23.2 VOL% (35.7-47.0); Hemoglobin 7.5 GM/DL (12.0-16.0); Immature Granulocytes % 0.4 %; Immature Granulocytes Absolute 0.04 #; Lymphocytes # 1.3 10*3/uL (1.4-4.0); Lymphocytes % 11.4 % (21.3-54.2); Mean Corpuscular HGB Conc 32.3 GM/DL (32-36); Mean Corpuscular Hemoglobin 28 PG (27-34); Mean Platelet Volume 12.3 FL (9.6-12.0); Monocytes # 0.8 10*3/uL (0.11-0.8); Monocytes % 7.5 % (1.7-12.7); Neutrophils # 8.8 10*3/uL (1.4-7.4); Neutrophils % 80.2 % (38.7-73.9); Platelet Count 211 T/CUMM (130-400); Red Blood Count 2.73 MC/CUMM (3.8-5.5); Red Cell Distribution Width 13.9 % (9.3-17.3)
[2018-05-04] MEDS: PROMETHAZINE 25 MG TABLET PO PRN ×2 (05:27→21:58)
[2018-05-04 05:54] LABS: Albumin 1.9 G/DL (3.4-5.0); Bilirubin,Total 0.5 MG/DL (0.2-1.0); Calcium 7.4 MG/DL (8.5-10.1); Osmolality,Calculated 285.1 MOS/KG (273-304); Potassium 3.7 MMOL/L (3.5-5.1); Total Protein 5.9 G/DL (6.4-8.3)
[2018-05-04] MEDS: INSULIN REGULAR 100 UNIT/ML SUBCUT SCH ×4 (07:52→20:55)
[2018-05-04] MEDS ORDERED: SODIUM CHLORIDE 0.9% 1,000 ML IV PRN (08:32)
[2018-05-04] MEDS ORDERED: ACETAMINOPHEN 325 MG TABLET PO PRN (08:32)
[2018-05-04] MEDS: glipiZIDE 5 MG TABLET PO SCH (09:12)
[2018-05-04] MEDS: LISINOPRIL 20 MG TABLET PO SCH (09:12)
[2018-05-04] MEDS: PANTOPRAZOLE 40 MG TABLET PO SCH (09:12)
[2018-05-04] MEDS: FERROUS SULFATE 325 MG TABLET PO SCH ×2 (09:12→20:53)
[2018-05-04] MEDS: SERTRALINE 25 MG TABLET PO SCH (09:12)
[2018-05-04] MEDS: PREGABALIN 50 MG CAPSULE PO SCH ×3 (09:12→20:53)
[2018-05-04] MEDS: ONDANSETRON ODT 4 MG TABLET PO PRN (17:15)
[2018-05-04] MEDS: ZALEPLON 5 MG CAPSULE PO SCH (20:53)
[2018-05-05] MEDS: ONDANSETRON ODT 4 MG TABLET PO PRN ×2 (02:38→10:02)
[2018-05-05] MEDS: HYDROmorphone 2 MG/1 ML VIAL IV PRN ×5 (02:38→21:28)
[2018-05-05 05:26] LABS: Basophils % 0.3 % (0.0-0.8); Eosinophils # 0.1 10*3/uL (0.0-0.87); Eosinophils % 1.1 % (0.00-10.9); Hematocrit 26.8 VOL% (35.7-47.0); Hemoglobin 8.7 GM/DL (12.0-16.0); Immature Granulocytes % 0.5 %; Immature Granulocytes Absolute 0.05 #; Lymphocytes # 1.7 10*3/uL (1.4-4.0); Lymphocytes % 16.1 % (21.3-54.2); Mean Corpuscular HGB Conc 32.5 GM/DL (32-36); Mean Corpuscular Hemoglobin 28 PG (27-34); Mean Corpuscular Volume 84.8 FL (87-102); Mean Platelet Volume 12.8 FL (9.6-12.0); Monocytes # 0.6 10*3/uL (0.11-0.8); Monocytes % 6.1 % (1.7-12.7); Neutrophils # 7.9 10*3/uL (1.4-7.4); Neutrophils % 75.9 % (38.7-73.9); Platelet Count 224 T/CUMM (130-400); Red Blood Count 3.16 MC/CUMM (3.8-5.5); Red Cell Distribution Width 14.5 % (9.3-17.3); White Blood Count 10.4 T/CUMM (4-12)
[2018-05-05] MEDS: SODIUM CHLORIDE 0.9% 1,000 ML IV SCH ×4 (05:32→20:12)
[2018-05-05] MEDS: INSULIN REGULAR 100 UNIT/ML SUBCUT SCH ×4 (08:28→21:12)
[2018-05-05] MEDS: SERTRALINE 25 MG TABLET PO SCH (08:29)
[2018-05-05] MEDS: LISINOPRIL 20 MG TABLET PO SCH (08:29)
[2018-05-05] MEDS: PANTOPRAZOLE 40 MG TABLET PO SCH (08:29)
[2018-05-05] MEDS: glipiZIDE 5 MG TABLET PO SCH (08:29)
[2018-05-05] MEDS: PREGABALIN 50 MG CAPSULE PO SCH ×3 (08:29→21:32)
[2018-05-05] MEDS: FERROUS SULFATE 325 MG TABLET PO SCH ×2 (08:31→21:32)
[2018-05-05] MEDS: PROMETHAZINE 25 MG TABLET PO PRN ×2 (12:34→21:31)
[2018-05-05] MEDS: ZALEPLON 5 MG CAPSULE PO SCH (21:31)
[2018-05-06] MEDS: HYDROmorphone 2 MG/1 ML VIAL IV PRN ×5 (01:45→20:48)
[2018-05-06] MEDS: ONDANSETRON ODT 4 MG TABLET PO PRN ×2 (01:49→20:48)
[2018-05-06] MEDS: SODIUM CHLORIDE 0.9% 1,000 ML IV SCH ×3 (04:17→19:47)
[2018-05-06 05:13] LABS: Basophils % 0.3 % (0.0-0.8); Eosinophils # 0.1 10*3/uL (0.0-0.87); Eosinophils % 1.4 % (0.00-10.9); Hematocrit 26.5 VOL% (35.7-47.0); Hemoglobin 8.6 GM/DL (12.0-16.0); Immature Granulocytes % 0.3 %; Immature Granulocytes Absolute 0.03 #; Lymphocytes # 1.9 10*3/uL (1.4-4.0); Lymphocytes % 21.2 % (21.3-54.2); Mean Corpuscular HGB Conc 32.5 GM/DL (32-36); Mean Corpuscular Hemoglobin 28 PG (27-34); Mean Corpuscular Volume 86.6 FL (87-102); Mean Platelet Volume 12.5 FL (9.6-12.0); Monocytes # 0.6 10*3/uL (0.11-0.8); Neutrophils # 6.4 10*3/uL (1.4-7.4); Neutrophils % 70.8 % (38.7-73.9); Platelet Count 249 T/CUMM (130-400); Red Blood Count 3.06 MC/CUMM (3.8-5.5); Red Cell Distribution Width 14.5 % (9.3-17.3); White Blood Count 9.1 T/CUMM (4-12)
[2018-05-06 05:40] LABS: Calcium 7.3 MG/DL (8.5-10.1); Osmolality,Calculated 283.1 MOS/KG (273-304); Potassium 3.5 MMOL/L (3.5-5.1)
[2018-05-06] MEDS: INSULIN REGULAR 100 UNIT/ML SUBCUT SCH ×4 (09:12→20:42)
[2018-05-06] MEDS: glipiZIDE 5 MG TABLET PO SCH (09:18)
[2018-05-06] MEDS: PROMETHAZINE 25 MG TABLET PO PRN ×2 (09:18→16:30)
[2018-05-06] MEDS: LISINOPRIL 20 MG TABLET PO SCH (09:18)
[2018-05-06] MEDS: SERTRALINE 25 MG TABLET PO SCH (09:18)
[2018-05-06] MEDS: FERROUS SULFATE 325 MG TABLET PO SCH ×2 (09:19→20:48)
[2018-05-06] MEDS: PREGABALIN 50 MG CAPSULE PO SCH ×3 (09:19→20:48)
[2018-05-06] MEDS: fentaNYL 25 MCG/HR PATCH TRANSDERM SCH (09:19)
[2018-05-06] MEDS: PANTOPRAZOLE 40 MG TABLET PO SCH (09:19)
[2018-05-06] MEDS: ZALEPLON 5 MG CAPSULE PO SCH (20:47)
[2018-05-07] MEDS: PROMETHAZINE 25 MG TABLET PO PRN ×3 (01:10→20:19)
[2018-05-07] MEDS: HYDROmorphone 2 MG/1 ML VIAL IV PRN ×5 (01:11→20:19)
[2018-05-07] MEDS: SODIUM CHLORIDE 0.9% 1,000 ML IV SCH ×3 (03:45→20:17)
[2018-05-07] MEDS: INSULIN REGULAR 100 UNIT/ML SUBCUT SCH ×3 (07:40→17:04)
[2018-05-07] MEDS: FERROUS SULFATE 325 MG TABLET PO SCH ×2 (09:11→20:21)
[2018-05-07] MEDS: LISINOPRIL 20 MG TABLET PO SCH (09:12)
[2018-05-07] MEDS: SERTRALINE 25 MG TABLET PO SCH (09:12)
[2018-05-07] MEDS: PREGABALIN 50 MG CAPSULE PO SCH ×3 (09:12→20:20)
[2018-05-07] MEDS: glipiZIDE 5 MG TABLET PO SCH (09:12)
[2018-05-07] MEDS: PANTOPRAZOLE 40 MG TABLET PO SCH (09:12)
[2018-05-07] MEDS: MAGNESIUM HYDROXIDE SUSP 30 ML UDCUP PO PRN (11:30)
[2018-05-07] MEDS: ONDANSETRON ODT 4 MG TABLET PO PRN (11:31)
[2018-05-07] MEDS: ZALEPLON 5 MG CAPSULE PO SCH (20:18)
[2018-05-08] MEDS: HYDROmorphone 2 MG/1 ML VIAL IV PRN ×5 (00:15→19:50)
[2018-05-08] MEDS: ONDANSETRON ODT 4 MG TABLET PO PRN ×2 (00:17→19:49)
[2018-05-08] MEDS: DOCUSATE SODIUM 100 MG CAPSULE PO SCH ×2 (01:03→22:46)
[2018-05-08] MEDS: INSULIN REGULAR 100 UNIT/ML SUBCUT SCH ×5 (01:03→20:42)
[2018-05-08 02:39] LABS: Basophils % 0.3 % (0.0-0.8); Eosinophils # 0.2 10*3/uL (0.0-0.87); Eosinophils % 2.5 % (0.00-10.9); Hematocrit 27.5 VOL% (35.7-47.0); Hemoglobin 8.9 GM/DL (12.0-16.0); Immature Granulocytes % 0.2 %; Immature Granulocytes Absolute 0.02 #; Lymphocytes # 2.2 10*3/uL (1.4-4.0); Lymphocytes % 24.1 % (21.3-54.2); Mean Corpuscular HGB Conc 32.4 GM/DL (32-36); Mean Corpuscular Hemoglobin 28 PG (27-34); Mean Corpuscular Volume 86.8 FL (87-102); Mean Platelet Volume 11.6 FL (9.6-12.0); Monocytes # 0.5 10*3/uL (0.11-0.8); Neutrophils # 6.2 10*3/uL (1.4-7.4); Neutrophils % 67.9 % (38.7-73.9); Platelet Count 274 T/CUMM (130-400); Red Blood Count 3.17 MC/CUMM (3.8-5.5); Red Cell Distribution Width 14.2 % (9.3-17.3); White Blood Count 9.2 T/CUMM (4-12)
[2018-05-08 03:15] LABS: Osmolality,Calculated 284.3 MOS/KG (273-304); Potassium 3.4 MMOL/L (3.5-5.1)
[2018-05-08] MEDS: PANTOPRAZOLE 40 MG TABLET PO SCH (08:47)
[2018-05-08] MEDS: LISINOPRIL 20 MG TABLET PO SCH (08:47)
[2018-05-08] MEDS: glipiZIDE 5 MG TABLET PO SCH (08:47)
[2018-05-08] MEDS: SERTRALINE 25 MG TABLET PO SCH (08:47)
[2018-05-08] MEDS: FERROUS SULFATE 325 MG TABLET PO SCH ×2 (08:47→22:45)
[2018-05-08] MEDS: PROMETHAZINE 25 MG TABLET PO PRN ×2 (09:07→15:54)
[2018-05-08] MEDS: SODIUM CHLORIDE 0.9% 1,000 ML IV SCH ×2 (12:03→19:53)
[2018-05-08 20:56] LABS: Apearance,Urine CLOUDY (Clear); Bilirubin,Urine Negative (Negative); Blood, Urine Large mg/dL (Negative); Glucose,Urine (UA) Negative (Negative); Ketones,Urine Negative (Negative); Nitrite,Urine Negative (Negative); Protein,Urine 100 MG/DL; RBC,Urine 2748 /HPF (0-4); Urine Color Red (Yellow); Urine Specific Gravity 1.004 (1.001-1.035); Urine Urobilinogen < 2.0 EU/DL (0.2-1.0); WBC,Urine 2 /HPF (0-6)
[2018-05-08] MEDS: ZALEPLON 5 MG CAPSULE PO SCH (22:45)
[2018-05-09] MEDS: HYDROmorphone 2 MG/1 ML VIAL IV PRN ×5 (00:51→20:28)
[2018-05-09] MEDS: PROMETHAZINE 25 MG TABLET PO PRN ×3 (00:51→15:50)
[2018-05-09] MEDS: SODIUM CHLORIDE 0.9% 1,000 ML IV SCH ×3 (04:04→20:26)
[2018-05-09] MEDS: ONDANSETRON ODT 4 MG TABLET PO PRN ×2 (05:21→20:28)
[2018-05-09] MEDS: INSULIN REGULAR 100 UNIT/ML SUBCUT SCH ×4 (08:40→20:49)
[2018-05-09 09:13] LABS: Basophils % 0.4 % (0.0-0.8); Eosinophils # 0.2 10*3/uL (0.0-0.87); Eosinophils % 2.7 % (0.00-10.9); Hematocrit 28.3 VOL% (35.7-47.0); Hemoglobin 9.1 GM/DL (12.0-16.0); Immature Granulocytes % 0.2 %; Immature Granulocytes Absolute 0.02 #; Lymphocytes # 1.9 10*3/uL (1.4-4.0); Lymphocytes % 21.9 % (21.3-54.2); Mean Corpuscular HGB Conc 32.2 GM/DL (32-36); Mean Corpuscular Hemoglobin 28 PG (27-34); Mean Corpuscular Volume 86.3 FL (87-102); Mean Platelet Volume 11.6 FL (9.6-12.0); Monocytes # 0.4 10*3/uL (0.11-0.8); Monocytes % 4.5 % (1.7-12.7); Neutrophils % 70.3 % (38.7-73.9); Platelet Count 305 T/CUMM (130-400); Red Blood Count 3.28 MC/CUMM (3.8-5.5); Red Cell Distribution Width 14.3 % (9.3-17.3); White Blood Count 8.5 T/CUMM (4-12)
[2018-05-09 09:33] LABS: Calcium 7.8 MG/DL (8.5-10.1); Osmolality,Calculated 277.5 MOS/KG (273-304); Potassium 3.5 MMOL/L (3.5-5.1)
[2018-05-09] MEDS: fentaNYL 25 MCG/HR PATCH TRANSDERM SCH (09:42)
[2018-05-09] MEDS: glipiZIDE 5 MG TABLET PO SCH (09:44)
[2018-05-09] MEDS: PANTOPRAZOLE 40 MG TABLET PO SCH (09:44)
[2018-05-09] MEDS: FERROUS SULFATE 325 MG TABLET PO SCH ×2 (09:44→20:28)
[2018-05-09] MEDS: LISINOPRIL 20 MG TABLET PO SCH (09:44)
[2018-05-09] MEDS: SERTRALINE 25 MG TABLET PO SCH (09:44)
[2018-05-09] MEDS: ZALEPLON 5 MG CAPSULE PO SCH (20:27)
[2018-05-09] MEDS: DOCUSATE SODIUM 100 MG CAPSULE PO SCH (21:24)
[2018-05-10] MEDS: HYDROmorphone 2 MG/1 ML VIAL IV PRN ×5 (00:35→21:16)
[2018-05-10] MEDS: PROMETHAZINE 25 MG TABLET PO PRN ×3 (00:35→14:48)
[2018-05-10] MEDS: SODIUM CHLORIDE 0.9% 1,000 ML IV SCH ×3 (04:26→22:48)
[2018-05-10] MEDS: ONDANSETRON ODT 4 MG TABLET PO PRN ×2 (04:33→12:21)
[2018-05-10] MEDS: INSULIN REGULAR 100 UNIT/ML SUBCUT SCH ×4 (09:33→21:19)
[2018-05-10] MEDS: PANTOPRAZOLE 40 MG TABLET PO SCH (09:33)
[2018-05-10] MEDS: SERTRALINE 25 MG TABLET PO SCH (09:34)
[2018-05-10] MEDS: LISINOPRIL 20 MG TABLET PO SCH (09:34)
[2018-05-10] MEDS: glipiZIDE 5 MG TABLET PO SCH (09:34)
[2018-05-10] MEDS: FERROUS SULFATE 325 MG TABLET PO SCH ×2 (09:34→21:18)
[2018-05-10] MEDS: PHENAZOPYRIDINE 95 MG TABLET PO SCH ×2 (12:20→17:16)
[2018-05-10] MEDS: MAGNESIUM HYDROXIDE SUSP 30 ML UDCUP PO PRN (14:56)
[2018-05-10] MEDS: PREGABALIN 50 MG CAPSULE PO SCH ×2 (17:16→21:18)
[2018-05-10] MEDS: ZALEPLON 5 MG CAPSULE PO SCH (21:18)
[2018-05-10] MEDS: DOCUSATE SODIUM 100 MG CAPSULE PO SCH (21:18)
[2018-05-11] MEDS: HYDROmorphone 2 MG/1 ML VIAL IV PRN ×2 (03:16→09:47)
[2018-05-11] MEDS: PROMETHAZINE 25 MG TABLET PO PRN (03:16)
[2018-05-11] MEDS: SODIUM CHLORIDE 0.9% 1,000 ML IV SCH (06:46)
[2018-05-11] MEDS: INSULIN REGULAR 100 UNIT/ML SUBCUT SCH ×2 (08:33→12:03)
[2018-05-11] MEDS: LISINOPRIL 20 MG TABLET PO SCH (09:15)
[2018-05-11] MEDS: PANTOPRAZOLE 40 MG TABLET PO SCH (09:15)
[2018-05-11] MEDS: FERROUS SULFATE 325 MG TABLET PO SCH (09:15)
[2018-05-11] MEDS: glipiZIDE 5 MG TABLET PO SCH (09:16)
[2018-05-11] MEDS: PREGABALIN 50 MG CAPSULE PO SCH (09:16)
[2018-05-11] MEDS: SERTRALINE 25 MG TABLET PO SCH (09:16)
[2018-05-11] MEDS: PHENAZOPYRIDINE 95 MG TABLET PO SCH ×2 (09:16→12:14)
[2018-05-11] MEDS ORDERED: HEPARIN LOCK FLUSH 500 UNIT/5 ML SYRINGE IV PRN (12:02)
[2018-05-11 12:08] VITALS: BP 147/86
[2018-05-11] MEDS ORDERED: HEPARIN LOCK FLUSH 500 UNIT/5 ML SYRINGE IV SCH (12:30)
== END 2018-05-11 12:34 | disposition home or self-care (01) | DRG 699 ==
LOC: N.ED 07:28 → N.EDINP 07:28 → N.2E 12:07 → SUATTDRO 05-02 14:12
PROVIDERS: ADMIT Internal Medicine Geriatric Medicine; ATTEND Internal Medicine

== ENCOUNTER 2018-09-18 11:42 | Inpatient (IN) ==
[2018-09-18] MEDS ORDERED: INFLUENZA VIRUS VACCINE 0.5 ML SYRINGE IM ONE (13:55)
[2018-09-18] MEDS ORDERED: PNEUMOCOCCAL VACCINE (13 VALENT) 0.5 ML SYRINGE IM ONE (13:55)
[2018-09-18] MEDS ORDERED: ALUMINUM/MAGNES/SIMETH MAX STR 30 ML UDCUP PO PRN (14:02)
[2018-09-18] MEDS ORDERED: ACETAMINOPHEN 325 MG TABLET PO PRN (14:02)
[2018-09-18] MEDS ORDERED: MAGNESIUM HYDROXIDE SUSP 30 ML UDCUP PO PRN (14:02)
[2018-09-18] MEDS: SODIUM CHLORIDE 0.9% 1,000 ML IV SCH (15:07)
[2018-09-18] MEDS: PANTOPRAZOLE 40 MG VIAL IV SCH ×2 (15:07→21:52)
[2018-09-18] MEDS: diphenhydrAMINE 50 MG/1 ML VIAL IV PRN ×2 (15:16→21:52)
[2018-09-18] MEDS: ONDANSETRON 4 MG/2 ML VIAL IV PRN ×2 (15:17→21:48)
[2018-09-18] MEDS: HYDROmorphone 2 MG/1 ML VIAL IV PRN ×2 (15:17→21:49)
[2018-09-18 15:55] LABS: Basophils % 0.6 % (0.0-0.8); Eosinophils # 0.1 10*3/uL (0.0-0.87); Eosinophils % 1.9 % (0.00-10.9); Hemoglobin 11.1 GM/DL (12.0-16.0); Immature Granulocytes % 0.2 %; Immature Granulocytes Absolute 0.01 #; Lymphocytes # 1.4 10*3/uL (1.4-4.0); Lymphocytes % 25.3 % (21.3-54.2); Mean Corpuscular HGB Conc 30.8 GM/DL (32-36); Mean Corpuscular Hemoglobin 26 PG (27-34); Mean Corpuscular Volume 84.9 FL (87-102); Mean Platelet Volume 12.4 FL (9.6-12.0); Monocytes # 0.3 10*3/uL (0.11-0.8); Monocytes % 5.8 % (1.7-12.7); Neutrophils # 3.5 10*3/uL (1.4-7.4); Neutrophils % 66.2 % (38.7-73.9); Platelet Count 170 T/CUMM (130-400); Red Blood Count 4.24 MC/CUMM (3.8-5.5); Red Cell Distribution Width 14.3 % (9.3-17.3); White Blood Count 5.3 T/CUMM (4-12)
[2018-09-18 16:03] LABS: Apearance,Urine CLOUDY (Clear); Bilirubin,Urine Negative (Negative); Blood, Urine Large mg/dL (Negative); Glucose,Urine (UA) Negative (Negative); Ketones,Urine Negative (Negative); Mucus,Urine Occasional /LPF (Occasional); Nitrite,Urine Negative (Negative); Protein,Urine 30 MG/DL; RBC,Urine 8 /HPF (0-4); Squamous Epithelial Cell,Urine Few /HPF (0-10); Urine Color Yellow (Yellow); Urine Urobilinogen < 2.0 EU/DL (0.2-1.0); WBC,Urine 116 /HPF (0-6)
[2018-09-18 16:10] LABS: Hypochromasia Slight; Platelet Estimate Adequate
[2018-09-18 17:04] LABS: Alanine Aminotransferase 19 U/L (13-56); Alkaline Phosphatase 119 U/L (45-117); Aspartate Amino Transferase 16 U/L (0-37); Bilirubin,Total < 0.39 MG/DL (0.2-1.0); Blood Urea Nitrogen 15 MG/DL (7-18); Calcium 8.5 MG/DL (8.5-10.1); Glucose 100 MG/DL (74-106); Osmolality,Calculated 277.5 MOS/KG (273-304); Potassium 4.6 MMOL/L (3.5-5.1); Sodium 139 MMOL/L (136-145); Total Protein 7.7 G/DL (6.4-8.3)
[2018-09-18] MEDS ORDERED: HYDROmorphone 2 MG/1 ML VIAL IV ONE (17:46)
[2018-09-18] MEDS: cefTRIAXone 1,000 MG in SYRINGE 1 EACH IV SCH (18:16)
[2018-09-18] MEDS: ZALEPLON 5 MG CAPSULE PO PRN (21:48)
[2018-09-19] MEDS: HYDROmorphone 2 MG/1 ML VIAL IV PRN ×6 (02:07→21:59)
[2018-09-19] MEDS: ONDANSETRON 4 MG/2 ML VIAL IV PRN ×5 (05:54→21:59)
[2018-09-19] MEDS: diphenhydrAMINE 50 MG/1 ML VIAL IV PRN ×3 (05:54→18:23)
[2018-09-19] MEDS: SODIUM CHLORIDE 0.9% 1,000 ML IV SCH (06:17)
[2018-09-19 06:41] LABS: Basophils % 0.8 % (0.0-0.8); Eosinophils # 0.2 10*3/uL (0.0-0.87); Eosinophils % 3.7 % (0.00-10.9); Hematocrit 35.1 VOL% (35.7-47.0); Hemoglobin 11.1 GM/DL (12.0-16.0); Immature Granulocytes % 0.2 %; Immature Granulocytes Absolute 0.01 #; Lymphocytes # 1.9 10*3/uL (1.4-4.0); Mean Corpuscular HGB Conc 31.6 GM/DL (32-36); Mean Corpuscular Hemoglobin 27 PG (27-34); Mean Corpuscular Volume 85.4 FL (87-102); Mean Platelet Volume 14.1 FL (9.6-12.0); Monocytes # 0.4 10*3/uL (0.11-0.8); Monocytes % 6.7 % (1.7-12.7); Neutrophils # 2.7 10*3/uL (1.4-7.4); Neutrophils % 52.6 % (38.7-73.9); Platelet Count 128 T/CUMM (130-400); Red Blood Count 4.11 MC/CUMM (3.8-5.5); Red Cell Distribution Width 14.5 % (9.3-17.3); White Blood Count 5.2 T/CUMM (4-12)
[2018-09-19 07:08] LABS: Hypochromasia 1+; Platelet Estimate Normal
[2018-09-19] MEDS: SERTRALINE 25 MG TABLET PO SCH (09:42)
[2018-09-19] MEDS: PANTOPRAZOLE 40 MG VIAL IV SCH ×2 (09:42→22:01)
[2018-09-19] MEDS: LISINOPRIL 20 MG TABLET PO SCH (09:42)
[2018-09-19 10:30] LABS: Alanine Aminotransferase 17 U/L (13-56); Albumin 2.6 G/DL (3.4-5.0); Alkaline Phosphatase 106 U/L (45-117); Aspartate Amino Transferase 12 U/L (0-37); Bilirubin,Total < 0.39 MG/DL (0.2-1.0); Blood Urea Nitrogen 12 MG/DL (7-18); Calcium 7.9 MG/DL (8.5-10.1); Cholesterol 130 MG/DL (50-200); Glucose 114 MG/DL (74-106); HDL Cholesterol 37 MG/DL (40-60); Osmolality,Calculated 279.4 MOS/KG (273-304); Risk Ratio 3.51; Sodium 140 MMOL/L (136-145); Total Protein 6.7 G/DL (6.4-8.3); Triglycerides 111 MG/DL (2-150); VLDL CHOLESTEROL 22.2 MG/DL
[2018-09-19] MEDS: cefTRIAXone 1,000 MG in SYRINGE 1 EACH IV SCH (18:27)
[2018-09-19] MEDS: ZALEPLON 5 MG CAPSULE PO PRN (22:14)
[2018-09-20] MEDS: diphenhydrAMINE 50 MG/1 ML VIAL IV PRN ×4 (00:08→20:40)
[2018-09-20] MEDS: SODIUM CHLORIDE 0.9% 1,000 ML IV SCH ×4 (00:17→20:42)
[2018-09-20] MEDS: HYDROmorphone 2 MG/1 ML VIAL IV PRN ×5 (03:29→20:38)
[2018-09-20] MEDS: ONDANSETRON 4 MG/2 ML VIAL IV PRN ×5 (03:29→20:35)
[2018-09-20 07:09] LABS: Basophils % 0.7 % (0.0-0.8); Eosinophils # 0.2 10*3/uL (0.0-0.87); Eosinophils % 4.1 % (0.00-10.9); Hematocrit 34.5 VOL% (35.7-47.0); Hemoglobin 10.6 GM/DL (12.0-16.0); Immature Granulocytes % 0.2 %; Immature Granulocytes Absolute 0.01 #; Lymphocytes # 1.8 10*3/uL (1.4-4.0); Lymphocytes % 39.9 % (21.3-54.2); Mean Corpuscular HGB Conc 30.7 GM/DL (32-36); Mean Corpuscular Hemoglobin 26 PG (27-34); Mean Corpuscular Volume 85.8 FL (87-102); Mean Platelet Volume 12.5 FL (9.6-12.0); Monocytes # 0.3 10*3/uL (0.11-0.8); Monocytes % 7.2 % (1.7-12.7); Neutrophils # 2.2 10*3/uL (1.4-7.4); Neutrophils % 47.9 % (38.7-73.9); Platelet Count 159 T/CUMM (130-400); Red Blood Count 4.02 MC/CUMM (3.8-5.5); Red Cell Distribution Width 14.1 % (9.3-17.3); White Blood Count 4.6 T/CUMM (4-12)
[2018-09-20 07:34] LABS: Alanine Aminotransferase 16 U/L (13-56); Albumin 2.5 G/DL (3.4-5.0); Alkaline Phosphatase 101 U/L (45-117); Aspartate Amino Transferase 14 U/L (0-37); Bilirubin,Total < 0.39 MG/DL (0.2-1.0); Blood Urea Nitrogen 12 MG/DL (7-18); Calcium 7.7 MG/DL (8.5-10.1); Glucose 118 MG/DL (74-106); Osmolality,Calculated 277.5 MOS/KG (273-304); Potassium 4.1 MMOL/L (3.5-5.1); Sodium 139 MMOL/L (136-145); Total Protein 6.5 G/DL (6.4-8.3)
[2018-09-20] MEDS: SERTRALINE 25 MG TABLET PO SCH (10:13)
[2018-09-20] MEDS: LISINOPRIL 20 MG TABLET PO SCH (10:13)
[2018-09-20] MEDS: PANTOPRAZOLE 40 MG VIAL IV SCH ×2 (10:13→22:12)
[2018-09-20] MEDS: ZALEPLON 5 MG CAPSULE PO PRN (22:11)
[2018-09-21] MEDS: ONDANSETRON 4 MG/2 ML VIAL IV PRN ×2 (01:02→05:04)
[2018-09-21] MEDS: HYDROmorphone 2 MG/1 ML VIAL IV PRN ×2 (01:04→05:05)
[2018-09-21] MEDS: diphenhydrAMINE 50 MG/1 ML VIAL IV PRN (05:06)
[2018-09-21 05:41] LABS: Basophils % 0.4 % (0.0-0.8); Eosinophils # 0.2 10*3/uL (0.0-0.87); Eosinophils % 4.1 % (0.00-10.9); Hematocrit 32.7 VOL% (35.7-47.0); Hemoglobin 10.3 GM/DL (12.0-16.0); Immature Granulocytes % 0.2 %; Immature Granulocytes Absolute 0.01 #; Lymphocytes # 1.8 10*3/uL (1.4-4.0); Lymphocytes % 36.1 % (21.3-54.2); Mean Corpuscular HGB Conc 31.5 GM/DL (32-36); Mean Corpuscular Hemoglobin 27 PG (27-34); Mean Corpuscular Volume 85.4 FL (87-102); Mean Platelet Volume 13.1 FL (9.6-12.0); Monocytes # 0.4 10*3/uL (0.11-0.8); Monocytes % 7.5 % (1.7-12.7); Neutrophils # 2.6 10*3/uL (1.4-7.4); Neutrophils % 51.7 % (38.7-73.9); Platelet Count 160 T/CUMM (130-400); Red Blood Count 3.83 MC/CUMM (3.8-5.5); Red Cell Distribution Width 14.1 % (9.3-17.3); White Blood Count 4.9 T/CUMM (4-12)
[2018-09-21 06:02] LABS: Albumin 2.6 G/DL (3.4-5.0); Bilirubin,Total 0.4 MG/DL (0.2-1.0); Calcium 7.6 MG/DL (8.5-10.1); Osmolality,Calculated 281.4 MOS/KG (273-304); Potassium 3.9 MMOL/L (3.5-5.1); Total Protein 6.1 G/DL (6.4-8.3)
[2018-09-21] MEDS: cefTRIAXone 1,000 MG in SYRINGE 1 EACH IV SCH (07:06)
[2018-09-21] MEDS: SODIUM CHLORIDE 0.9% 1,000 ML IV SCH (07:07)
[2018-09-21 07:39] VITALS: BP 130/67
[2018-09-21] MEDS: PANTOPRAZOLE 40 MG VIAL IV SCH (08:20)
[2018-09-21] MEDS: LISINOPRIL 20 MG TABLET PO SCH (08:21)
[2018-09-21] MEDS: SERTRALINE 25 MG TABLET PO SCH (08:21)
== END 2018-09-21 09:50 | disposition home or self-care (01) | DRG 392 ==
LOC: INTOOBSV 13:10 → SUATTDRO 13:10 → N.2W 13:10 → N.5E 14:35 → SUATTDRO 09-19 18:19
PROVIDERS: ADMIT Internal Medicine; ATTEND Phlebology